=== PATIENT | female | born 1925 | race Caucasian/White ===

== ENCOUNTER 2017-06-06 06:15 | Day surgery (SDC) | payer OTHER ==
[2017-06-05 17:10] VITALS: BMI 27.8
[2017-06-06] MEDS ORDERED: BUPIVACAINE HCL/PF 0.5% (5MG/ML) 10 ML VIAL ONE (07:09)
[2017-06-06] MEDS ORDERED: BSS (NA/CA/MG/K) BALANCED SALT SOLUTION OPHTH SOLN 15 ML BOTTLE ONE (07:09)
[2017-06-06] MEDS ORDERED: BACITRACIN 3.5 GM OPTHALMIC OINT TUBE ONE (07:09)
[2017-06-06] MEDS ORDERED: TETRACAINE 0.5% OPHTH SOLN 2 ML BOTTLE ONE (07:09)
[2017-06-06] MEDS ORDERED: GENTAMICIN 0.3% OPHTHALMIC OINTMENT 3.5 GM/TUBE ONE (07:09)
[2017-06-06] MEDS ORDERED: LIDOCAINE 1%/EPI 1:100000 (20 ML MULTI DOSE VIAL) ONE (07:10)
[2017-06-06] MEDS ORDERED: THROMBIN (BOVINE) 5,000 UNIT VIAL TP ONE (07:26)
[2017-06-06] MEDS ORDERED: COCAINE HCL 4% TOPICAL SOLUTION 4 ML BOTTLE TP ONE (07:26)
[2017-06-06] MEDS ORDERED: POVIDONE-IODINE 5% OPHTHALMIC PREP 30 ML SOLUTION ONE (07:37)
[2017-06-06] MEDS ORDERED: PROPOFOL 20 ML ONE ×3 (07:38→09:43)
[2017-06-06] MEDS ORDERED: MIDAZOLAM HCL 2 MG/2 ML SINGLE DOSE VIAL ONE (07:38)
[2017-06-06] MEDS ORDERED: PHENYLEPHRINE HCL 10 MG/1 ML SINGLE DOSE VIAL ONE (08:17)
[2017-06-06] MEDS ORDERED: DEXAMETHASONE SOD PHOSPHATE 4 MG/1 ML VIAL ONE (08:23)
[2017-06-06] MEDS ORDERED: ONDANSETRON 4 MG/2 ML VIAL ONE (08:23)
[2017-06-06] MEDS ORDERED: CLINDAMYCIN PHOSPHATE 600 MG/4 ML VIAL ONE (08:23)
[2017-06-06] MEDS ORDERED: VASOPRESSIN 20 UNITS/ML VIAL IV ONE (08:34)
[2017-06-06] MEDS ORDERED: ONDANSETRON 4 MG/2 ML VIAL IVPUSH PRN (09:38)
[2017-06-06] MEDS ORDERED: oxyCODONE HCL 5 MG TABLET PO PRN (09:38)
[2017-06-06] MEDS ORDERED: LACTATED RINGERS SOLUTION 1,000 ML IV SCH (09:45)
[2017-06-06] MEDS ORDERED: ACETAMINOPHEN 500 MG TABLET (FP) PO PRN (10:47)
[2017-06-06 10:58] VITALS: TEMP 97.2
[2017-06-06] MEDS ORDERED: oxyCODONE HCL 5 MG TABLET ONE (11:41)
[2017-06-06 12:59] VITALS: BP 142/71; PULSE 68
--- NOTE | 2017-06-06 13:59 | OP ---
DATE OF OPERATION: 06/06/2017 PREOPERATIVE DIAGNOSIS: Extensive defect, right medial canthus, right nasal bridge, and nasal portions of the right upper lid and right lower lid. POSTOPERATIVE DIAGNOSIS: Extensive defect, right medial canthus, right nasal bridge, and nasal portions of the right upper lid and right lower lid. PROCEDURE: 1. Examination under anesthesia. 2. Skin flap with advancement to right medial canthus, right lower lid. 3. Skin flap with advancement to right medial canthus, right upper lid. 4. Myocutaneous flap from the forehead to the right medial canthus. 5. Right medial canthoplasty. SURGEON: Marvel Woo MD ANESTHESIA: Moderate sedation. COMPLICATIONS: None. ESTIMATED BLOOD LOSS: 5-10 mL OPERATIVE REPORT: The patient was brought to the operating room and placed on the operating room table. Vital signs were monitored by Anesthesia. The wound was photographed and a glabellar flap was marked as well as skin flaps in both the upper and lower lids, extending out to the lateral canthus. After intravenous sedation, tetracaine was placed in the eyes, and then, a 50/50 mixture of 2% Xylocaine and 1:100,000 of epinephrine and 0.5% Marcaine was injected subcutaneously in the right lower lid, throughout the lid, the right upper lid, throughout the right forehead and nasal bridge and medial canthus for a total of 10 mL. The patient was prepped and draped in the usual sterile fashion, exposing the ears and both eyes. The left eye was closed manually. The lid was examined. The medial canthal tendon was seen to be exposed, as was the lateral sidewall of the nose and the nasal quarter. The skin of the upper and lower lid was missing as well. Incisions were made in the following: In the subciliary direction in the lower lid and carried out to the canthus. A skin flap was developed and this was advanced under no tension to the medial canthal tendon, covering it and sutured there with a 5-0 chromic. In similar fashion, a supraciliary incision was made in the right upper lid and a skin flap was developed out to the lateral canthus. This was advanced to the medial canthal tendon and secured there with a 5-0 chromic. Both of the flaps were closed with running 6-0 plain suture along the length of the dissected flap in the supraciliary and infraciliary line. Prior to closing the upper flap, a 5-0 Prolene suture was passed through the deep medial canthal tissues, just superior to the medial canthal tendon. This was passed through the advancement flap of the right upper lid through a bolster which would later be used to re-create the concavity. Attention was now turned to the residual defect in the medial canthus and nasal bridge. The glabellar flap, which had been previously marked, was now incised through the skin, dermis, and submuscular tissue. The flap was elevated in the galeal plane. Wide undermining of the left side of the forehead in the galeal plane was performed and over the nasal bridge. This allowed rotation of the flap down toward the medial canthal tissues. The left part of the forehead was advanced centrally and secured with a 3-0 chromic suture to the periosteal tissues, holding it in place. Then, the donor site of the rotated muscular flap was closed with a deep 3-0 chromic and more superficial 5-0 chromic sutures, closing that donor site. The flap was appropriately thinned as needed to mesh with the upper and lower eyelid flaps. It was secured to the deep medial canthus with a double-arm 5-0 Prolene suture passed through a bolster and tied over the flap to create the concavity as necessary. cutaneous deformities were moved to the superior end of the donor site and at the inferior end of the rotated flap over the nasal bridge. These were removed. Tissues were all closed with meticulous 5-0 chromic suture. The skin was closed in the medial canthus where a medial canthoplasty was performed with interrupted 5-0 plain sutures, tailoring the advanced and thinned glabellar flap to meet the upper and lower eyelid flaps with interrupted 5-0 plain suture and then the remaining area of the closure over the nasal bridge, over the donor site and along the junction of the glabella flap with the superior eyelid. These were all closed with running 5-0 plain suture. Bacitracin ointment was placed on all the sutures. Two dental rolls were then placed in the concavity of the right medial canthal area and tied over with Mastisol and paper tape to create gentle pressure on the concavity. After bacitracin ointment was placed on all of the sutures, the patient was taken to the recovery room in stable condition. MARVEL WOO M.D. LELAND/[id number]
== END 2017-06-06 13:00 | disposition home or self-care (01) ==
LOC: FASU 06:15
PROVIDERS: ATTEND Ophthalmology
PROC: 08BN0ZZ Excision of Right Upper Eyelid, Open Approach (ICD-10-PCS; 2017-06-06)
PROC: 0KX10ZZ Transfer Facial Muscle, Open Approach (ICD-10-PCS; principal; 2017-06-06 08:25)
DX: H02.89 Other specified disorders of eyelid (principal)
CPT/HCPCS: 94760